=== PATIENT | female | born 1980 | race American Indian/Alaskan Native ===

== ENCOUNTER 2017-09-13 17:59 | Emergency (ER) | payer SELFPAY ==
--- NOTE | 2017-09-13 22:01 | Emergency Department Report ---
HPI - General Chief Complaint: Pain General Time Seen by Provider: 09/13/17 21:23 - HPI HPI: Patient he reported that she's having generalized pain and she has chronic pain and has run out of her pain medication. Patient says she takes [place] 10 every 4 hours and Klonopin 2 mg twice a day she said she is here visiting from [place] town for [place]. She says she is having pain in her joints and pain is similar to pain that she usually gets. She told triage nurse that she ran out of her medication but she told me that she left her medication at home because she thought that she could do without them. Pain is 10 out of 10 and achy to joints. Denies any chest pain or shortness of breath. Denies any fever or chills. Denies any nausea or vomiting. Denies any radiation of pain to her extremities. Denies any loss of bowel or bladder function. ED Past Medical Hx - Past Medical History Previous Medical History?: Yes Hx of Cancer: Yes Additional medical history: fibromyalgia - Surgical History Past Surgical History?: No - Family History Family history: hypertension - Social History Smoking Status: Former Smoker Substance Use Type: None - Medications Home Medications: Home Medications Medication Instructions Recorded Confirmed Last Taken Type HYDROcodone/ACETAMINOPHEN [[place] 1 each PO Q4HR 09/13/17 09/13/17 Unknown History 10-325 Tablet] clonazePAM [KlonoPIN] 2 mg PO BID 09/13/17 09/13/17 Unknown History hydrOXYzine PAMOATE [Vistaril] 25 mg PO Q6HR PRN 5 Days #20 09/13/17 Unknown Rx capsule traMADol [Ultram] 50 mg PO Q6HR PRN 5 Days #20 tablet 09/13/17 Unknown Rx ED Review of Systems ROS: Stated complaint: CHRONIC PAIN Other details as noted in HPI Comment: All other systems reviewed and negative Constitutional: no symptoms reported Eyes: denies: eye pain, vision change ENT: denies: ear pain, throat pain, congestion Respiratory: no symptoms reported Cardiovascular: denies: chest pain, palpitations, dyspnea on exertion, orthopnea , edema, syncope, paroxysmal nocturnal dyspnea Gastrointestinal: denies: abdominal pain, nausea, vomiting, diarrhea, constipation, hematemesis, hematochezia Musculoskeletal: arthralgia, myalgia. denies: back pain, joint swelling Skin: denies: rash Neurological: denies: headache, weakness, numbness, paresthesias, confusion, abnormal gait, vertigo Physical Exam - Physical Exam Vital Signs: Vital Signs 09/13/17 18:12 Temperature 98.1 F Pulse Rate 100 H Respiratory 20 Rate Blood Pressure 117/71 O2 Sat by Pulse 100 Oximetry General: This is a 36-year-old female in no acute distress. Patient is nontoxic in appearance. Physical Exam: Head: Normocephalic, atraumatic, no abrasion, no bruising and no contusion. Eyes: Biateral pupils equal and reactive to light, bilateral EOM intact.. Bilateral conjunctival and sclera without injection, normal accommodation. No nystagmus Mouth: Moist, no pharyngeal exudate or erythema. Uvula is midline and tongue is normal. Oral airways patent. Neck: Supple, No Cervical adenopathy, full range of motion and no C-spine tenderness. No swelling or tracheal deviation normal reflexes Cardiovascular: S1, S2. Regular rate and rhythm. No murmur. Capillary refill is less then 3 seconds. Lungs: Clear to auscultate bilaterally. No rhonchi, wheezes or rales. No chest wall tenderness MSK: Strength 5/5 in all extremities. No joint deformity or crepitus. Normal inspection. Full range of motion to all extremities Back: Vertebral tenderness, no paraspinal tenderness. Negative straight leg raises and negative saddle anesthesia. Patient able to ambulate without any difficulties. Extremities: No clubbing, cyanosis or edema. +2 pulses. No neurovascular compromise. No joint effusion, deformity, erythema or swelling. Capillary refill is less than 3 seconds. Skin: Clean, dry and intact. No rash or lesions. Neurological: GCS at 15, Pt is alert and oriented 3 speech is clear period. Bilateral hand mounter saxophones strong and equal. Normal gait. Negative Romberg and no pronator drift. Normal Reflexes. No motor or sensory deficit ED Course Vital Signs 09/13/17 18:12 Temperature 98.1 F Pulse Rate 100 H Respiratory 20 Rate Blood Pressure 117/71 O2 Sat by Pulse 100 Oximetry - Reevaluation(s) Reevaluation #1: 09/13/17 22:22 Patient given Percocet 5/325 2 tablets in emergency room. I discussed with her that I cannot give her anything stronger than tramadol and I'll give her Vistaril if she develop anxiety. Patient says she is going back home on Saturday. I told her to call her primary care physician or pain management doctor for refills ED Medical Decision Making - Medical Decision Making ED course: Patient here reports flareup of chronic pain and she says she forgot her medication at home and she thought should do okay. She is visiting from out of town and said that she is having pain in her joints and muscle from fibromyalgia. She is taken [place] 10 every 4 hours as needed and Klonopin 2 mg twice a day. Patient has been here for a few days and she has no signs of withdrawal. I discussed with her that we cannot order [place] or Klonopin 2 manage her chronic pain she will be going home on Saturday so I told her to call her pain management doctor for refills. I discussed treatment plan and she is in agreement. Patient given Percocet 5/325 Motrin 2 tablets in the emergency room and discharged home with prescription for Vistaril and tramadol. Patient discharged home with her sister in stable condition. Critical care attestation.: If time is entered above; I have spent that time in minutes in the direct care of this critically ill patient, excluding procedure time. ED Disposition Clinical Impression: Chronic pain syndrome, Arthralgia of multiple sites, bilateral, Myalgia Disposition: [id number] TO HOME OR SELFCARE Is pt being admited?: No Does the pt Need Aspirin: No Condition: Stable Instructions: Musculoskeletal Pain (ED), Arthralgia (ED), Chronic Pain (ED) Additional Instructions: Please do not drive or operate heavy machinery while taking Ultram or Vistaril as these medication causes drowsiness. Follow-up with your pain specialist or primary care physician when you get home. Vistaril is to treat anxiety and tramadol to treat pain. Please increase her fluid intake Prescriptions: hydrOXYzine PAMOATE [Vistaril] 25 mg PO Q6HR PRN 5 Days #20 capsule PRN Reason: Anxiety traMADol [Ultram] 50 mg PO Q6HR PRN 5 Days #20 tablet PRN Reason: Pain Referrals: PRIMARY CARE [Primary Care Provider] - 09/16/17 Forms: Work/School Release Form(ED), Accompanied Note
[2017-09-13] MEDS ORDERED: PERCOCET 5/325 PO ONE (22:21)
[2017-09-13 22:39] VITALS: BP 123/74
== END 2017-09-13 22:39 | disposition home or self-care (01) ==
LOC: ED 17:59
DX: M79.1 Myalgia (principal); G89.4 Chronic pain syndrome; Z87.891 Personal history of nicotine dependence; M19.90 Unspecified osteoarthritis, unspecified site; Z88.6 Allergy status to analgesic agent
CPT/HCPCS: 99282